=== PATIENT | male | born 2000 | race Two or more races ===

== ENCOUNTER 2025-02-12 17:25 | Emergency (ER) | payer MEDICAID, SELFPAY ==
[2025-02-12 17:26] VITALS: BMI 29.7
[2025-02-12 17:50] VITALS: BP 155/80; PULSE 93; RESP 19; TEMP 37.1; O2SAT 96
--- NOTE | 2025-02-12 18:10 | XR_ITS ---
Examination: Knee, right , 3 views Technique: Knee AP, lateral, oblique 3 views Date and time of exam: February 12, 20252022 hrs. Indications: Patient fell today with twisting injury to the knee, knee pain. Findings: No fracture or dislocation. Moderate knee effusion Impression: No fracture. Moderate knee effusion, seen with internal derangement of the knee
--- NOTE | 2025-02-12 18:11 | PD.EDRME ---
Rapid Medical Screening Exam E Arrival date/time: 02/12/25 17:25 This is a 25-year-old male that comes into the emergency room with complaints of right knee pain. Patient states that he thinks he hurt it at work today prior to arrival. Patient denies any other trauma. I have greeted and performed a focused initial assessment of this patient. Initial appropriate labs ordered at this time. A comprehensive ED assessment and evaluation of the patient and analysis of all test and completion of medical decision making process will be conducted by additional ED provider. Chief Complaint: Extremity Injury, Lower Time Seen by Provider: 02/12/25 17:30 Vital signs: Vital Signs Temperature 98.8 F 02/12/25 17:50 Pulse Rate 93 02/12/25 17:50 Respiratory Rate 19 02/12/25 17:50 Blood Pressure 155/80 H 02/12/25 17:50 Pulse Oximetry (%) 96 02/12/25 17:50 Oxygen Delivery Method Room Air 02/12/25 17:50
--- NOTE | 2025-02-12 21:27 | EDNOTE_ITS ---
Lower Extremity Injury RME/HPI General Chief Complaint: Extremity Injury, Lower Stated Complaint: I INJURED MY R KNEE S/P WORK Time Seen by Provider: 02/12/25 17:30 Arrival date/time: 02/12/25 17:25 RME / HPI RME / HPI Narrative: 02/12/25 17:25 This is a 25-year-old male that comes into the emergency room with complaints of right knee pain. Patient states that he thinks he hurt it at work today prior to arrival. Patient denies any other trauma. I have greeted and performed a focused initial assessment of this patient. Initial appropriate labs ordered at this time. A comprehensive ED assessment and evaluation of the patient and analysis of all test and completion of medical decision making process will be conducted by additional ED provider. DR. DELONG MAIN ED EVALUATION: Patient presents with a twisting injury involving right knee occurring earlier today. Reports pain along the medial aspect of the right knee and noted painful weight bearing. No distal parasthesia or weakness. No other injuries sustained. PMH: None reported. PSH: Negative. Social: Unremarkable. Related Data Home Medications ?Medication ?Instructions ?Recorded ?Confirmed tamsulosin 0.4 mg capsule 0.4 mg PO QHS 01/27/2001/26 Allergies Allergy/AdvReac Type Severity Reaction Status Date / Time NKA* Allergy Uncoded 02/12/25 17:29 Review of Systems Review of Systems Systems Reviewed: All systems reviewed, normal except as documented ED Exam Narrative Physical exam: GEN. APPEARANCE: The patient is alert awake oriented X-3 in no distress, lying down comfortably, does not look ill/toxic. Patient has good eye contact. Patient is cooperative. C/o mild right knee pain. VITALS: All vitals were reviewed and the pulse ox is 99% on room air which is normal according to my interpretation. HEENT: Normocephalic, atraumatic. Pupils are equal and reactive. Oral mucosa is moist. Patent Nares NECK: Supple, nontender, no thyromegaly, no meningismus, no JVD, no step offs CHEST: Symmetrical, atraumatic, and with equal expansion , Nontender on palpation no deformity and no crepitus. CARDIOVASCULAR: Heart regular rhythm no murmur or gallop rub or extra beats. LUNGS: Clear to auscultation bilaterally with symmetrical chest rise. No laboring tachypnea or wheezing. No intercostal subcostal retraction. No rales and no rhonchi. ABDOMEN: Soft, flat, nontender to palpation, no guarding or rebound tenderness. There are no abnormal masses palpated. Active and normal bowel sounds. EXTREMITIES: Demonstrates mild tenderness along medial joint line of RLE, no ligamentus instability, or evidence of peripatellar effusion, FROM with minimal pain, distal fxn intact. No edema. No cyanosis. Patient is able to move all 4 extremities well, with full ROM and good CSM. SKIN: Warm and dry, no jaundice or rashes noted. MUSCULOSKELETAL: No lubar or midline bony tenderness. There is no CVA tenderness. No paraspinal muscle spasm or tenderness. NEURO: Patient is WOODWARD x 4, Cranial nerves II through XII grossly intact. There is no focal neurologic deficits noted. GCS is 15, PNS and HISTOTECHNICIAN appear grossly intact. PSYCHIATRIC: Patient is in normal mood and affect, cooperative, no SI or HI or hallucinations. Course Quality Measures none Orders Category Date Time Status Apply knee immobilizer NOW Care 02/12/25 21:34 Completed XR knee RT 3V Stat Exams 02/12/25 18:10 Completed HYDROcodone*/APAP 5/325 [[place] 5/325] Med 02/12/25 21:28 Discontinued 1 tab PO X1 ONE Ibuprofen Tab [Motrin Tab] Med 02/12/25 21:28 Discontinued 400 mg PO X1 ONE Vital Signs Vital signs: Vital Signs Temperature 98.8 F 02/12/25 17:50 Pulse Rate 93 02/12/25 17:50 Respiratory Rate 19 02/12/25 17:50 Blood Pressure 155/80 H 02/12/25 17:50 Pulse Oximetry (%) 96 02/12/25 17:50 Oxygen Delivery Method Room Air 02/12/25 17:50 Extremity Injury, Lower MDM Narrative MDM Narrative:: Scribe Attestation: Johnna John, negro scribing for and in the presence of Dr. Delong. Provider Notation: Although this document has been carefully reviewed, there may still be some phonetic and other typographical errors. These errors are purely grammatical due to imperfections in the software program and should not be construed in any way to compromise the substance of the patient's medical care during this visit. Patient presents with a twisting injury involving right knee occurring earlier today. Reports pain along the medial aspect of the right knee and noted painful weight bearing. Please see PE findings. Routine x-rays of right knee obtained demonstrating effusion likely associated with meniscus injury. Examination suggest possible medial meniscus injury with no gross instability. Will place in a knee immobilizer. Will recommend crutches for 5 days and F/U with PMD. Clinical impression includes internal derangement of the right knee. Recommend no weight bearing for 5 days, take medicaiton as directed, and F/U with PMD. Return if worse. Patient data External records reviewed:: [facility] previous records (No prior ED records available for review.) Clinical information provided by:: patient Social determinants that could affect healthcare access:: none Patient has the following chronic illnesses:: None reported How is presenting disease/condition affected by chronic disease/condition?: no chronic disease Evaluation data The following diagnostics were reviewed and interpreted by me:: radiology exam(s) Lab and/or radiology exams considered but not ordered:: None Interpretation Summary: RADIOLOGY Knee X-Ray: Findings: No fracture or dislocation. Moderate knee effusion Impression: No fracture. Moderate knee effusion, seen with internal derangement of the knee Medications / Prescriptions Medications or Prescriptions considered but not ordered:: None Medication administrations:: Medication Administration History Discontinued Medications Hydrocodone Bitart/Acetaminophen (Hydrocodone/Apap 5/325 Tablet) 1 tab PO X1 ONE Stop: 02/12/25 21:29 Last Admin: 02/12/25 21:44 Dose: 1 tab Documented By: DT Ibuprofen (Ibuprofen Tab 400 Mg Tablet) 400 mg PO X1 ONE Stop: 02/12/25 21:29 Last Admin: 02/12/25 21:44 Dose: 400 mg Documented By: DT See above if any Consultations Consultation(s) initiated? (list below): No Diagnosis Extremity Injury, Lower Differential Diagnosis: ankle sprain and strain, acute internal derangement of knee, fracture of femur and fracture of hip Most likely diagnosis given after review of the tests above:: Acute internal derangement of knee Admission Indicated Admission indicated?: not indicated Explain why admission is indicated or not indicated:: Patient does not meet admission criteria Admission Request Was there a request for admission?: No Disposition Plan Disposition Plan: Discharge Discharge Attestation Discharge Attestation: The patient and all family members were given an opportunity to ask questions and understood the discharge instructions. Discharge instructions specifically effects, indications for sooner follow up or return to the emergency department, and the expected course of current diagnosis. Patient condition: Stable Discharge Plan Plan Patient Disposition: HOME (Self Care) Discharge Disposition comment: Stable Prescriptions/Referrals Prescriptions/Med Rec: No Action tamsulosin 0.4 mg capsule 0.4 mg PO QHS Problem List Clinical Impression: Acute internal derangement of knee Patient/Caregiver Discharge Instructions Discharge Activity: activity as tolerated Education Materials: ED Knee Sprain Additional Instructions: Ice elevation, avoid weightbearing for 5 days. Medication as directed. Follow- up with primary care doctor for consideration of orthopedic referral if symptoms persist. Return if worse Print Language: Luxembourgish Stand Alone Forms: Pamella Award Info., Work/School Release, Patient Portal Info Letter
[2025-02-12] MEDS: IBUPROFEN TAB 400 MG TABLET PO (21:44)
[2025-02-12] MEDS: HYDROcodone/APAP 5/325 TABLET 1 TAB PO (21:44)
[2025-02-12 21:52] VITALS: PULSE 85; RESP 14; TEMP 37; O2SAT 99
== END 2025-02-12 21:52 | disposition home or self-care (01) ==
LOC: SERX 22:08
PROVIDERS: Emergency Provider Emergency Medicine
DX: S83.104A Unspecified dislocation of right knee, initial encounter (principal); M25.461 Effusion, right knee; X50.1XXA Overexertion from prolonged static or awkward postures, initial encounter
CPT/HCPCS: 73562; 99284; A9270